=== PATIENT | male | born 1995 | race Caucasian/White ===

== ENCOUNTER 2018-08-17 12:12 | Emergency (ER) | payer BC ==
[~2018-08-17] VITALS: Ht 190.5 cm; Wt 81.3 kg
[2018-08-17 12:30] VITALS: BP 149/96
[2018-08-17] MEDS ORDERED: HYDR-5092 PO (12:34)
--- NOTE | 2018-08-17 12:38 | NUR ---
PT AMBULATED TO ER BED 07
--- NOTE | 2018-08-17 12:54 | NUR ---
23/M BIB MOM C/O MID CP WITH SOB X 2 DAYS PT WAS SENT FROM HIS PMD FOR ER MD SUERO. SKIN IS PINK/WARM/DRY; AAOX4 WITH EVEN AND STEADY GAIT; LUNGS CLEAR BL; HR TACHY 111/MINS AT THIS TIME. PT DENIES ANY FEVER OR COUGH AT THIS TIME; PATIENT STATES PAIN OF 6/10 AT THIS TIME; VSS; PATIENT POSITIONED FOR COMFORT; HOB ELEVATED; BEDRAILS UP X2; BED DOWN. ER MD MADE AWARE OF PT STATUS.
[2018-08-17] MEDS ORDERED: LORazepam 2 MG/ML VIAL IVP ONE (13:25)
--- NOTE | 2018-08-17 13:38 | NUR ---
XRAY AT BEDSIDE
[2018-08-17 14:00] LABS: BARBITURATE, URINE NEG. ng/ml (NEG <=200); BENZODIAZEPINE, URINE NEG. ng/mL (NEG <=200); CANNABINOID, URINE POS. ng/mL (NEG <=50); COCAINE, URINE NEG. ng/mL (NEG <=300); OPIATE, URINE NEG. ng/mL (NEG <=2000); PHENCYCLIDINE SCREEN,URINE NEG. ng/mL (NEG <=25)
[2018-08-17 14:06] LABS: BASOPHILS # (AUTO) 0.1 K/uL (0.00-0.22); BASOPHILS % (AUTO) 0.8 % (0.0-2.0); EOSINOPHILS # (AUTO) 0.3 K/uL (0-0.4); EOSINOPHILS % (AUTO) 3.8 % (0.0-4.0); HEMATOCRIT 45.2 % (36-52); HEMOGLOBIN 15.5 g/dL (12.0-18.0); LYMPHOCYTES # (AUTO) 1.2 K/uL (2.0-11.5); LYMPHOCYTES % (AUTO) 15.7 % (20.5-51.1); MEAN CORPUSCULAR HEMOGLOBIN 28 pg (27-31); MEAN CORPUSCULAR HGB CONC 34 g/dL (33-37); MEAN CORPUSCULAR VOLUME 80.8 fL (80-94); MONOCYTES # (AUTO) 0.4 K/uL (0.8-1.0); MONOCYTES % (AUTO) 5.4 % (1.7-9.3); NEUTROPHILS # (AUTO) 5.8 K/uL (1.8-7.7); NEUTROPHILS % (AUTO) 74.3 % (42.2-75.2); PLATELET COUNT (AUTO) 248 K/uL (140-450); RED BLOOD CELL COUNT(AUTO) 5.59 MIL/uL (4.20-6.10); RED CELL DISTRIBUTION WIDTH 12.8 % (11.6-13.7); WHITE BLOOD COUNT (AUTO) 7.8 K/uL (4.8-10.8)
[2018-08-17 14:35] LABS: ALBUMIN 4.7 g/dL (3.4-5.0); ANION GAP 9.9 (8-16); CARBON DIOXIDE 33.1 mmol/L (21-32); CREATININE 0.9 mg/dL (0.7-1.3); TOTAL BILIRUBIN 0.5 mg/dL (0.0-1.0)
[2018-08-17 14:53] LABS: PROTHROMBIN TIME 9.5 secs (10.8-13.4)
[2018-08-17 15:02] LABS: FREE T4 (FREE THYROXINE) 1.01 ng/dL (0.76-1.46); MAGNESIUM 1.8 mg/dL (1.8-2.4); THYROID STIMULATING HORMONE 0.42 uIU/mL (0.34-3.74)
[2018-08-17 15:58] VITALS: BP 130/87
--- NOTE | 2018-08-17 15:59 | NUR ---
Patient discharged with v/s stable. Written and verbal after care instructions given and explained. Patient alert, oriented and verbalized understanding of instructions. Ambulatory with steady gait. All questions addressed prior to discharge. ID band removed. Patient advised to follow up with PMD. Rx of VISTARIL given. Patient educated on indication of medication including possible reaction and side effects. Opportunity to ask questions provided and answered.
== END 2018-08-17 15:59 | disposition home or self-care (01) ==
LOC: MED 12:12
DX: R07.89 Other chest pain (principal); R06.02 Shortness of breath; R00.2 Palpitations; F12.10 Cannabis abuse, uncomplicated; Z88.0 Allergy status to penicillin; Z79.891 Long term (current) use of opiate analgesic
CPT/HCPCS: 36415; 71045; 80053; 80305; 83735; 83880; 84439; 84443; 84479; 84484; 85025; 85610; 85730; 93005; 96374; 99284; J2060; Q0092